=== PATIENT | female | born 1965 | race Caucasian/White ===

== ENCOUNTER 2022-02-08 20:51 | Emergency (ER) | payer OTHER, SELFPAY ==
[2022-02-08 21:19] VITALS: BP 140/96; PULSE 95; RESP 20; TEMP 36.8; O2SAT 97; BMI 22.9
--- NOTE | 2022-02-08 21:43 | ED.HEATRA ---
HPI - Head Injury General Chief complaint: Head Injury Stated complaint: FALL HIT FACE LACERATION TO FACE Time Seen by Provider: 02/08/22 21:43 Source: patient and family Mode of arrival: Ambulatory History of Present Illness HPI Narrative: 56-year-old female nonsmoker with noncontributory medical history presents with her in the chief complaint of a ground level fall resulting in a facial injury just prior to arrival. She had been in her normal state of health when she was reaching over to adjust a curtain when she fell onto her face. She denies any loss of consciousness. She admits to a laceration on the right side of her face and she injured her nose. She denies nausea or vomiting. She takes no blood thinners. She denies any neck or back pain. She has no chest pain or shortness of breath. She is able to breathe through both nostrils. She denies any dental pain or malocclusion. She denies blurred or double vision Related Data Allergies Allergy/AdvReac Type Severity Reaction Status Date / Time Sulfa (Sulfonamide Allergy Verified 02/09/22 00:32 Antibiotics) Review of Systems Review of Systems Narrative: GENERAL: Denies chills, fatigue, malaise, fever, sweats. HEENT: See HPI RESPIRATORY: Denies dyspnea, cough, wheezing, hemoptysis, sputum. CARDIOVASCULAR: Denies chest pain, palpitations, orthopnea, edema, GASTROINTESTINAL: Denies nausea, vomiting, abdominal pain, diarrhea, constipation, melena. : Denies dysuria, frequency, incontinence, hematuria, urinary retention. MUSCULOSKELETAL: denies weakness, joint pain, or bony pain SKIN: See HP NEUROLOGIC: See HPI PSYCHIATRIC: No concerning psychosocial issues. 12 point review of systems is negative except for those stated above Patient History Social History Smoking Status: Never smoker Smoking Status: Never smoker alcohol intake frequency: 0-2 drinks per day Alcohol type: wine Substance Use Type: does not use Exam Narrative Exam Narrative: GENERAL: [56 year old patient appears stated age. Well-developed patient, in mild distress. GCS 15 HEAD: Superficial laceration of right upper lid with minimal bleeding, bruising on the bridge of the nose without overlying laceration. Otherwise no laceration, contusion or swelling, no evidence of depressed skull fracture EYES: Pupils equal round and reactive. No hyphema Extraocular motions intact. No scleral icterus. No injection or drainage. ENT: Nose without bleeding, purulent drainage. No nasal septal hematoma Throat without erythema, tonsillar hypertrophy or exudate. Airway patent. NECK: Trachea midline. Non tender CARDIOVASCULAR: Regular rate and rhythm without murmurs, gallops, or rubs. RESPIRATORY: Clear to auscultation. Breath sounds equal bilaterally. No wheezes, rales, or rhonchi. GASTROINTESTINAL: Abdomen soft, non-tender, nondistended. EXTREMITIES: No edema or joint tenderness. BACK: Nontender without deformity or crepitance. No flank tenderness. NEURO: AOx3. SKIN: No rash or erythema of visible areas Initial Vital Signs Initial Vital Signs: Vital Signs Temperature 98.2 F 02/08/22 21:19 Pulse Rate 95 H 02/08/22 21:19 Respiratory Rate 20 02/08/22 21:19 Blood Pressure 140/96 H 02/08/22 21:19 Pulse Oximetry 97 02/08/22 21:19 Procedures Laceration Repair Laceration 1: Site: face Side (If applicable): right Size (cm): 1.5 Description: flap Depth: simple, single layer Local Anesthetic: lidocaine 1% and with bicarb Amount of anesthesia used (mL): 2 Pre-repair: wound explored and cleansed with chlorhexadine Skin layer closed with: nylon Skin layer suture size: 6-0 Number of sutures: 4 Technique: simple, interrupted Course Orders Ordered: ED Orders 02/08/22 23:24 CT cervical spine wo con Stat CT facial bones wo con Stat CT head/brain wo con Stat Discontinued Medications Lidocaine/Sodium Bicarbonate (Lido 1%/Sod Bicarb 8.4% (10ml) 10 Ml Syringe) 10 ml INJ NOW ONE Stop: 02/09/22 00:26 Last Admin: 02/09/22 00:30 Dose: 10 ml Documented by: BREANNE Vital Signs Vital signs: Vital Signs - 8 hr 02/08/22 21:19 Temperature 98.2 F Pulse Rate 95 H Respiratory Rate 20 Blood Pressure 140/96 H Pulse Oximetry 97 MDM - Head Injury Imaging Data CT scan - head: Radiologist's Impression: [address] [address] [address] Scan Report Signed Patient: Yisel Cline MR#: [id number] : 1965 Acct:[id number] Age/Sex: 56 / F Date of Service: 02/08/22 Loc: ED Accession Number: [id number] ?? Procedure: CT head/brain wo con Ordering Provider: Soham Garcia D.O. PROCEDURE:? CT HEAD/BRAIN WO CON ? INDICATIONS:? fall with head injury ? TECHNIQUE:? Noncontrast 4.5 mm thick angled axial sections acquired from the foramen magnum to the vertex, with coronal and sagittal reformats.? For radiation dose reduction, the following was used:? automated exposure control, adjustment of mA and/or kV according to patient size.? ? COMPARISON:? None. ? FINDINGS:? Image quality:? Excellent.? ? CSF spaces:? Basal cisterns are patent.? No extra-axial fluid collections.? Ventricles are normal in size and shape.? ? Brain:? No midline shift.? No intracranial masses or hemorrhage.? Ladd-white matter interface is normal.? ? Skull and face:? Calvarium is intact, without suspicious lesions.? Nondisplaced nasal bone fractures. ? Sinuses:? Visualized sinuses and mastoids are clear.? ? IMPRESSION:? ? 1. CT head without acute intracranial abnormalities.? ? 2. Nasal bone fractures.? No acute calvarial fractures.? ? ? Dictated by: Javier Ruff M.D. on 02/09/2022 at 0:41 ? ? Approved by: Javier Ruff M.D. on 02/09/2022 at 0:41? CT Facial Bones: Radiologist's Impression: [place] [address] CT Scan Report Signed Patient: Yisel Cline MR#: [id number] : 1965 Acct:[id number] Age/Sex: 56 / F Date of Service: 02/08/22 Loc: ED Accession Number: [id number] ?? Procedure: CT facial bones wo con Ordering Provider: Soham Garcia D.O. PROCEDURE:? CT FACIAL BONES WO CON ? INDICATIONS:? fall with facial injury ? TECHNIQUE:? Noncontrast 2.5 mm thick axial images acquired from the mandible through the frontal sinuses, with coronal and sagittal reformatting.? For radiation dose reduction, the following was used:? automated exposure control, adjustment of mA and/or kV according to patient size.? ? COMPARISON:? None. ? FINDINGS:? Image quality:? Excellent.? ? Bones and teeth:? Orbital amanda are intact.? Sinus amanda show no fracture or deformity.? Nondisplaced bilateral nasal bone fractures.? Nasal septum is intact.? Visualized portions of the mandible demonstrate no fractures or subluxation.? Zygomatic arches are intact.? Pterygoid plates are intact.? Visualized portions of the skull base and auditory canals are intact.? ? Sinuses:? Paranasal sinuses are aerated, without fluid levels, mucosal thickening, or mucoceles.? Mastoid air cells are aerated.? ? Soft tissues:? Right periorbital soft tissue swelling.? Otherwise, remainder of the visualized structures demonstrate no edema, masses, or fluid collections.? No enlarged lymph nodes.? No soft tissue lacerations or debris.? ? Vascular:? Visualized vascular structures appear normal in the absence of contrast.? Bony vascular foramina and canals are intact.? ? IMPRESSION:? Right periorbital soft tissue swelling with nondisplaced bilateral nasal bone fractures. ? ? Dictated by: Javier Ruff M.D. on 02/09/2022 at 0:35 ? ? Approved by: Javier Ruff M.D. on 02/09/2022 at 0:39 ? CT - cervical spine: Radiologist's Impression: Close Head CT (Signed) Javier Ruff - 02/08/[address] (Signed) Javier Ruff - 02/08/[address] (Signed) Javier Ruff - 02/08/22 [place] [address] CT Scan Report Signed Patient: Yisel Cline MR#: [id number] : 1965 Acct:[id number] Age/Sex: 56 / F Date of Service: 02/08/22 Loc: ED Accession Number: [id number] ?? Procedure: CT cervical spine wo con Ordering Provider: Soham Garcia D.O. PROCEDURE:? CT CERVICAL SPINE WO CON ? INDICATIONS:? fall with head/face injury ? TECHNIQUE:? Noncontrast 3 mm thick sections acquired from the skull base to the T4 level.? Sagittal and coronal reformats were then constructed.? For radiation dose reduction, the following was used:? automated exposure control, adjustment of mA and/or kV according to patient size.? ? COMPARISON:? None. ? FINDINGS:? Image quality:? Excellent.? ? Bones:? No acute fractures or dislocations.? No acute compression fractures of the vertebral bodies. Craniocervical junction is intact. C1-C2 relationship is preserved. Visualized superior ribs are intact.? Multilevel cervical spondylosis seen throughout the imaged spine most pronounced at C4-5 and C5-6.? No significant spinal canal stenosis.? Straightening of cervical lordosis which may be due to patient positioning and/or concurrent muscle spasms. ? Soft tissues:? Prevertebral soft tissues are normal in thickness.? No paravertebral hematomas.? No apical pneumothoraces.? ? ? IMPRESSION:? ? 1. CT cervical spine without acute fracture or traumatic malalignment. ? 2. Mild straightening of normal cervical lordosis likely related to positioning and/or concurrent muscle spasms. ? 3. Moderate multilevel cervical spondylosis most pronounced at C4-5 and C5-6.? Dictated by: Javier Ruff M.D. on 02/09/2022 at 0:32 ? ? Approved by: Javier Ruff M.D. on 02/09/2022 at 0:35 ? Discharge Plan Departure Patient Disposition: Home Clinical Impression: Facial laceration, Closed fracture nasal bone Instructions: DI for Nose Fracture, DI for Laceration Repair Activity Restrictions/Additional Instructions: *You have been diagnosed with [fall with forehead contusion, right upper lid laceration, a nondisplaced nasal bone fractures. Otherwise the imaging is very reassuring *What to do: *Please continue to take your regular medications as directed. [ ] New medication prescriptions sent to your pharmacy: [ ] [ ] New medication written as a paper prescription [ ] No new medications given * Please keep the wound clean and dry to the best of your ability. Please monitor for signs of infection such as redness to the skin or increasing pain. Have the sutures/sal removed by your doctor in about 7 days. If you are unable to get into your doctor, we would be happy to remove the sutures/sal in that same timeframe. *If you do not have a primary care provider please contact the [facility] Resource line at [phone]. They will ask some questions about your medical history and help get you set up with a doctor in the community. *Return to Emergency Department if you should have any new, worsening or concerning symptoms, such as [fever greater than 101 F, shaking chills, worsening pain, persistent vomiting or other bothersome symptoms] Referrals: Olivier Lopez MD [Physician] -
--- NOTE | 2022-02-08 23:24 | DI.CT.S_ITS ---
PROCEDURE: CT FACIAL BONES WO CON INDICATIONS: fall with facial injury TECHNIQUE: Noncontrast 2.5 mm thick axial images acquired from the mandible through the frontal sinuses, with coronal and sagittal reformatting. For radiation dose reduction, the following was used: automated exposure control, adjustment of mA and/or kV according to patient size. COMPARISON: None. FINDINGS: Image quality: Excellent. Bones and teeth: Orbital amanda are intact. Sinus amanda show no fracture or deformity. Nondisplaced bilateral nasal bone fractures. Nasal septum is intact. Visualized portions of the mandible demonstrate no fractures or subluxation. Zygomatic arches are intact. Pterygoid plates are intact. Visualized portions of the skull base and auditory canals are intact. Sinuses: Paranasal sinuses are aerated, without fluid levels, mucosal thickening, or mucoceles. Mastoid air cells are aerated. Soft tissues: Right periorbital soft tissue swelling. Otherwise, remainder of the visualized structures demonstrate no edema, masses, or fluid collections. No enlarged lymph nodes. No soft tissue lacerations or debris. Vascular: Visualized vascular structures appear normal in the absence of contrast. Bony vascular foramina and canals are intact. IMPRESSION: Right periorbital soft tissue swelling with nondisplaced bilateral nasal bone fractures. Dictated by: Javier Ruff M.D. on 02/09/2022 at 0:35 Approved by: Javier Ruff M.D. on 02/09/2022 at 0:39
--- NOTE | 2022-02-08 23:24 | DI.CT.S_ITS ---
PROCEDURE: CT HEAD/BRAIN WO CON INDICATIONS: fall with head injury TECHNIQUE: Noncontrast 4.5 mm thick angled axial sections acquired from the foramen magnum to the vertex, with coronal and sagittal reformats. For radiation dose reduction, the following was used: automated exposure control, adjustment of mA and/or kV according to patient size. COMPARISON: None. FINDINGS: Image quality: Excellent. CSF spaces: Basal cisterns are patent. No extra-axial fluid collections. Ventricles are normal in size and shape. Brain: No midline shift. No intracranial masses or hemorrhage. Ladd-white matter interface is normal. Skull and face: Calvarium is intact, without suspicious lesions. Nondisplaced nasal bone fractures. Sinuses: Visualized sinuses and mastoids are clear. IMPRESSION: 1. CT head without acute intracranial abnormalities. 2. Nasal bone fractures. No acute calvarial fractures. Dictated by: Javier Ruff M.D. on 02/09/2022 at 0:41 Approved by: Javier Ruff M.D. on 02/09/2022 at 0:41
--- NOTE | 2022-02-08 23:24 | DI.CT.S_ITS ---
PROCEDURE: CT CERVICAL SPINE WO CON INDICATIONS: fall with head/face injury TECHNIQUE: Noncontrast 3 mm thick sections acquired from the skull base to the T4 level. Sagittal and coronal reformats were then constructed. For radiation dose reduction, the following was used: automated exposure control, adjustment of mA and/or kV according to patient size. COMPARISON: None. FINDINGS: Image quality: Excellent. Bones: No acute fractures or dislocations. No acute compression fractures of the vertebral bodies. Craniocervical junction is intact. C1-C2 relationship is preserved. Visualized superior ribs are intact. Multilevel cervical spondylosis seen throughout the imaged spine most pronounced at C4-5 and C5-6. No significant spinal canal stenosis. Straightening of cervical lordosis which may be due to patient positioning and/or concurrent muscle spasms. Soft tissues: Prevertebral soft tissues are normal in thickness. No paravertebral hematomas. No apical pneumothoraces. IMPRESSION: 1. CT cervical spine without acute fracture or traumatic malalignment. 2. Mild straightening of normal cervical lordosis likely related to positioning and/or concurrent muscle spasms. 3. Moderate multilevel cervical spondylosis most pronounced at C4-5 and C5-6. Dictated by: Javier Ruff M.D. on 02/09/2022 at 0:32 Approved by: Javier Ruff M.D. on 02/09/2022 at 0:35
[2022-02-09] MEDS: LIDO 1%/SOD BICARB 8.4% (10ML) 10 ML SYRINGE INJ (00:30)
[2022-02-09 01:33] VITALS: BP 147/80; PULSE 91; RESP 20; O2SAT 98
== END 2022-02-09 01:34 | disposition home or self-care (01) ==
PROVIDERS: Emergency Provider Emergency Medicine
DX: S01.511A Laceration without foreign body of lip, initial encounter (principal); S02.2XXA Fracture of nasal bones, initial encounter for closed fracture; W18.30XA Fall on same level, unspecified, initial encounter; Y93.89 Activity, other specified
CPT/HCPCS: 12011; 70450; 70486; 72125; 99283; 99284

== ENCOUNTER → 2023-11-05 16:18 | Outpatient (ROUT) | payer OTHER, SELFPAY ==
[2023-11-05 17:25] LABS: Influenza A - CEPHEID Flu A NEGATIVE (NEGATIVE); Influenza B - CEPHEID Flu B NEGATIVE (NEGATIVE); Respiratory Syncytial Virus POSITIVE (Negative)
[2023-11-05 17:27] LABS: COVID-19 CEPHEID 4-PLEX PCR Negative (Negative)
== END ==
PROVIDERS: Visit Provider Internal Medicine
DX: R05.1 Acute cough (principal); R50.9 Fever, unspecified
CPT/HCPCS: 0241U